=== PATIENT | female | born 1975 | race Caucasian/White ===

== ENCOUNTER 2016-09-24 04:17 | Emergency (ER) | payer SELFPAY ==
[2016-09-24 05:10] LABS: Basophils % (Auto) 0.6 % (0.0-1.8); Eosinophils % (Auto) 0.6 % (0.0-4.3); Hematocrit 34.9 % (30.3-42.9); Hemoglobin 11.6 gm/dl (10.1-14.3); Mean Corpuscular HGB Conc 33 % (30-34); Mean Corpuscular Hemoglobin 29 pg (28-32); Mean Corpuscular Volume 86 fl (79-97); Platelet Count 270 K/mm3 (140-440); Red Blood Count 4.05 M/mm3 (3.65-5.03); White Blood Count 11.3 K/mm3 (4.5-11.0)
[2016-09-24 05:52] LABS: Bilirubin,Urine NEG (Negative); Blood,Urine LG (Negative); Ketones,Urine TR mg/dL (Negative); Leukocyte Esterase,Urine NEG (Negative); Nitrite,Urine NEG (Negative); Protein,Urine <15 mg/dL mg/dL (Negative); Urobilinogen,Urine < 2.0 mg/dL (<2.0); WBC,Urine < 1.0 /HPF (0.0-6.0)
--- NOTE | 2016-09-24 06:34 | Emergency Department Report ---
ED HPI - General Chief complaint: Vaginal Bleeding Stated complaint: 10WKS W/BLEEDING AND CRAMPING Time Seen by Provider: 09/24/16 06:30 Source: patient Mode of arrival: Ambulatory Limitations: No Limitations - History of Present Illness Initial comments: She complains of some minor vaginal bleeding and lower abdominal discomfort. She believes that she is an weeks . She has been having intermittent bleeding for the past 15 days but no ultrasound. She came from [place] and is headed to [place] at the end of this week. She has no OB doctor as of yet. The patient has had no recent fever or chills. MD Complaint: vaginal bleeding -: week(s) Location: pelvis Radiation: none Quality: cramping Consistency: intermittent Improves with: none Worsens with: none Associated symptoms: denies other symptoms - Related Data Previous Rx's Medication Instructions Recorded Last Taken Type HYDROcodone/APAP 5-325 [[place] 1 each PO Q6HR PRN #14 tablet 09/24/16 Unknown Rx 5/325] Allergies Allergy/AdvReac Type Severity Reaction Status Date / Time No Known Allergies Allergy Unverified 09/24/16 04:24 ED Review of Systems ROS: Stated complaint: 10WKS W/BLEEDING AND CRAMPING Other details as noted in HPI Constitutional: denies: chills, fever Eyes: denies: eye pain, eye discharge, vision change ENT: denies: ear pain, throat pain Respiratory: denies: cough, shortness of breath, wheezing Cardiovascular: denies: chest pain, palpitations Endocrine: no symptoms reported Gastrointestinal: abdominal pain. denies: nausea, diarrhea Genitourinary: as per HPI. denies: urgency, dysuria, discharge Musculoskeletal: denies: back pain, joint swelling, arthralgia Skin: denies: rash, lesions Neurological: denies: headache, weakness, paresthesias Psychiatric: denies: anxiety, depression Hematological/Lymphatic: denies: easy bleeding, easy bruising ED Past Medical Hx - Past Medical History Previous Medical History?: No - Surgical History Past Surgical History?: Yes Additional Surgical History: c-sec - Social History Smoking Status: Never Smoker - Medications Home Medications: Home Medications Medication Instructions Recorded Confirmed Last Taken Type HYDROcodone/APAP 5-325 [[place] 1 each PO Q6HR PRN #14 tablet 09/24/16 Unknown Rx 5/325] ED Physical Exam - General Limitations: No Limitations General appearance: alert, in no apparent distress - Head Head exam: Present: atraumatic, normocephalic - Eye Eye exam: Present: normal appearance. Absent: scleral icterus - ENT ENT exam: Present: mucous membranes moist - Neck Neck exam: Present: normal inspection - Respiratory Respiratory exam: Present: normal lung sounds bilaterally. Absent: respiratory distress - Cardiovascular Cardiovascular Exam: Present: regular rate, normal rhythm. Absent: systolic murmur, diastolic murmur, rubs, gallop - GI/Abdominal GI/Abdominal exam: Present: soft, normal bowel sounds. Absent: distended, tenderness, guarding, rebound, rigid - Extremities Exam Extremities exam: Present: normal inspection - Back Exam Back exam: Present: normal inspection - Neurological Exam Neurological exam: Present: alert, oriented X3, CN II-XII intact. Absent: motor sensory deficit - Psychiatric Psychiatric exam: Present: normal affect, normal mood - Skin Skin exam: Present: warm, dry, intact, normal color. Absent: rash ED Course Vital Signs 09/24/16 09/24/16 04:24 07:54 Temperature 98.0 F Pulse Rate 88 85 Respiratory 18 18 Rate Blood Pressure 153/103 Blood Pressure 147/96 [Left] O2 Sat by Pulse 100 100 Oximetry - Reevaluation(s) Reevaluation #1: Significant vaginal bleeding. Patient is appropriate for outpatient referral and follow-up. 09/24/16 08:12 ED Medical Decision Making - Lab Data Result diagrams: 09/24/16 04:40 Laboratory Results - last 24 hr 09/24/16 09/24/16 09/24/16 04:40 04:40 04:40 WBC 11.3 H RBC 4.05 Hgb 11.6 Hct 34.9 MCV 86 MCH 29 MCHC 33 RDW 14.0 Plt Count 270 Lymph % (Auto) 29.1 [place] % (Auto) 5.4 Eos % (Auto) 0.6 Baso % (Auto) 0.6 Lymph # 3.3 [place] # 0.6 Eos # 0.1 Baso # 0.1 Seg Neutrophils % 64.3 Seg Neutrophils # 7.2 HCG, Quant 7223 H Urine Color Urine Turbidity Urine pH Ur Specific [place] Urine Protein Urine Glucose (UA) Urine Ketones Urine Blood Urine Nitrite Urine Bilirubin Urine Urobilinogen Ur Leukocyte Esterase Urine WBC (Auto) Urine RBC (Auto) U Epithel Cells (Auto) Blood Type O POSITIVE Antibody Screen TNR HECTOR Antibody Screen Negative 09/24/16 05:19 WBC RBC Hgb Hct MCV MCH MCHC RDW Plt Count Lymph % (Auto) [place] % (Auto) Eos % (Auto) Baso % (Auto) Lymph # [place] # Eos # Baso # Seg Neutrophils % Seg Neutrophils # HCG, Quant Urine Color Straw Urine Turbidity Clear Urine pH 6.0 Ur Specific [place] 1.002 L Urine Protein <15 mg/dl Urine Glucose (UA) Neg Urine Ketones Tr Urine Blood Lg Urine Nitrite Neg Urine Bilirubin Neg Urine Urobilinogen < 2.0 Ur Leukocyte Esterase Neg Urine WBC (Auto) < 1.0 Urine RBC (Auto) 2.0 U Epithel Cells (Auto) < 1.0 Blood Type Antibody Screen HECTOR Antibody Screen - Radiology Data Radiology results: report reviewed interpreted by me: Demise at 6 weeks. Critical care attestation.: If time is entered above; I have spent that time in minutes in the direct care of this critically ill patient, excluding procedure time. ED Disposition Clinical Impression: Inevitable Disposition: DISCHARGED TO HOME OR SELFCARE Is pt being admited?: No Does the pt Need Aspirin: No Condition: Stable Instructions: Intrauterine Demise (ED) Additional Instructions: Return any significant bleeding as needed. Follow-up with OB doctor. See referral. Rx as needed for pain. Prescriptions: HYDROcodone/APAP 5-325 [[place] 5/325] 1 each PO Q6HR PRN #14 tablet PRN Reason: Pain Referrals: DIMITRIOS LUNA MD [Primary Care Provider] - 3-5 Days LUIS EDUARDO CAPUTO MD [Staff Physician] - 2-3 Days Time of Disposition: 08:12
--- NOTE | 2016-09-24 07:35 | Ultrasound Report ---
ULTRASOUND OB LESS THAN 14 WEEKS ULTRASOUND OB TRANSVAGINAL HISTORY: Vaginal bleeding during . FINDINGS: Transabdominal and transvaginal ultrasound imaging was performed. There are no comparisons. The uterus measures 11 x 6 x 6 cm. No uterine mass is appreciated. An intrauterine gestational sac containing a small pole is identified. No heart rate could be demonstrated. [place]-rump length measures 4.1 mm which correlates with a 6 week, 1 day . Both ovaries are visualized and demonstrate no abnormality. No pelvic fluid collection. IMPRESSION: demise.
[2016-09-24 07:55] VITALS: BP 147/96
== END 2016-09-24 08:23 | disposition home or self-care (01) ==
LOC: ED 04:17
DX: O03.9 Complete or unspecified spontaneous abortion without complication (principal); Z3A.10 10 weeks gestation of pregnancy
CPT/HCPCS: 36415; 76801; 76817; 81001; 84702; 85025; 86850; 86900; 86901

== ENCOUNTER 2016-09-25 05:48 | Emergency (ER) | payer SELFPAY ==
[2016-09-25] MEDS ORDERED: NORCO 5/325 ONE ×2 (05:55→11:30)
[2016-09-25] MEDS ORDERED: NORCO 5/325 PO ONE ×2 (06:09→11:34)
[2016-09-25 07:15] LABS: Basophils % (Auto) 0.5 % (0.0-1.8); Eosinophils % (Auto) 0.6 % (0.0-4.3); Hematocrit 33.7 % (30.3-42.9); Hemoglobin 11.1 gm/dl (10.1-14.3); Mean Corpuscular HGB Conc 33 % (30-34); Mean Corpuscular Hemoglobin 29 pg (28-32); Mean Corpuscular Volume 87 fl (79-97); Platelet Count 276 K/mm3 (140-440); Red Blood Count 3.88 M/mm3 (3.65-5.03); Red Cell Distribution Width 14.3 % (13.2-15.2)
[2016-09-25 07:33] LABS: Alanine Aminotransferase 13 units/L (7-56); Albumin 3.7 g/dL (3.9-5); Albumin/Globulin Ratio 1.2 %; Alkaline Phosphatase 83 units/L (35-129); Anion Gap 21 mmol/L; BUN/Creatinine Ratio 16.66; Bilirubin,Total 0.3 mg/dL (0.1-1.2); Blood Urea Nitrogen 10 mg/dL (7-17); Calcium 8.5 mg/dL (8.4-10.2); Carbon Dioxide 19 mmol/L (22-30); Chloride 99.2 mmol/L (98-107); Glucose 173 mg/dL (65-100); Lipase 22 units/L (13-60); Potassium 3.6 mmol/L (3.6-5.0); Sodium 136 mmol/L (137-145); Total Protein 6.8 g/dL (6.3-8.2)
[2016-09-25 11:32] VITALS: BP 107/73
--- NOTE | 2016-09-25 12:15 | Emergency Department Report ---
ED General Adult HPI - General Chief complaint: Abdominal Pain Stated complaint: POSS MISCARRIAGE Time Seen by Provider: 09/25/16 10:40 Source: patient Mode of arrival: Ambulatory Limitations: No Limitations - History of Present Illness Initial comments: The patient complains of lower abdominal cramping after passing what she thinks was her fetus. She was found to be approximately 6 weeks of gestational age when I saw her yesterday with a crown-rump length of 4.1 and negative cardiac activity. She was referred to OB and given a prescription for pain medication. She's had some subsequent bleeding but not a significant amount. -: Sudden Location: abdomen Radiation: non-radiation Severity scale (0 -10): 7 Quality: other (cramping) Consistency: intermittent Improves with: none Worsens with: none Associated Symptoms: other (vaginal bleeding) Treatments Prior to Arrival: none - Related Data Home Medications Medication Instructions Recorded Confirmed Last Taken Acetaminophen [Acetaminophen TAB] 1 tab PO PRN PRN 09/25/16 09/25/16 09/25/16 1 Previous Rx's Medication Instructions Recorded Last Taken Type HYDROcodone/APAP 5-325 [[place] 1 each PO Q6HR PRN #14 tablet 09/24/16 09/25/16 Rx 5/325] Allergies Allergy/AdvReac Type Severity Reaction Status Date / Time No Known Allergies Allergy Unverified 09/24/16 04:24 ED Review of Systems ROS: Stated complaint: POSS MISCARRIAGE Other details as noted in HPI Constitutional: denies: chills, fever Eyes: denies: eye pain, eye discharge, vision change ENT: denies: ear pain, throat pain Respiratory: denies: cough, shortness of breath, wheezing Cardiovascular: denies: chest pain, palpitations Endocrine: no symptoms reported Gastrointestinal: abdominal pain. denies: nausea, diarrhea Genitourinary: as per HPI. denies: urgency, dysuria, discharge Musculoskeletal: denies: back pain, joint swelling, arthralgia Skin: denies: rash, lesions Neurological: denies: headache, weakness, paresthesias Psychiatric: denies: anxiety, depression Hematological/Lymphatic: denies: easy bleeding, easy bruising ED Past Medical Hx - Past Medical History Previous Medical History?: No - Surgical History Past Surgical History?: Yes Additional Surgical History: c-sec - Social History Smoking Status: Never Smoker Substance Use Type: None - Medications Home Medications: Home Medications Medication Instructions Recorded Confirmed Last Taken Type HYDROcodone/APAP 5-325 [[place] 1 each PO Q6HR PRN #14 tablet 09/24/16 09/25/16 Rx 5/325] Acetaminophen [Acetaminophen TAB] 1 tab PO PRN PRN 09/25/16 09/25/16 09/25/16 History 1 ED Physical Exam - General Limitations: No Limitations General appearance: alert, in no apparent distress - Head Head exam: Present: atraumatic, normocephalic - Eye Eye exam: Present: normal appearance. Absent: scleral icterus - ENT ENT exam: Present: mucous membranes moist - Neck Neck exam: Present: normal inspection - Respiratory Respiratory exam: Present: normal lung sounds bilaterally. Absent: respiratory distress - Cardiovascular Cardiovascular Exam: Present: regular rate, normal rhythm. Absent: systolic murmur, diastolic murmur, rubs, gallop - GI/Abdominal GI/Abdominal exam: Present: soft, normal bowel sounds. Absent: distended, tenderness, guarding, rebound, rigid - Extremities Exam Extremities exam: Present: normal inspection - Back Exam Back exam: Present: normal inspection - Neurological Exam Neurological exam: Present: alert, oriented X3, CN II-XII intact. Absent: motor sensory deficit - Psychiatric Psychiatric exam: Present: normal affect, normal mood - Skin Skin exam: Present: warm, dry, intact, normal color. Absent: rash ED Course Vital Signs 09/25/16 09/25/16 09/25/16 06:07 10:15 11:32 Temperature 98.3 F Pulse Rate 71 68 62 Respiratory 20 18 19 Rate Blood Pressure 149/101 149/87 107/73 [Right] O2 Sat by Pulse 100 99 100 Oximetry ED Medical Decision Making - Lab Data Result diagrams: 09/25/16 06:56 09/25/16 06:56 Laboratory Results - last 24 hr 09/25/16 09/25/16 06:56 06:56 WBC 12.0 H RBC 3.88 Hgb 11.1 Hct 33.7 MCV 87 MCH 29 MCHC 33 RDW 14.3 Plt Count 276 Lymph % (Auto) 21.6 [place] % (Auto) 5.0 Eos % (Auto) 0.6 Baso % (Auto) 0.5 Lymph # 2.6 [place] # 0.6 Eos # 0.1 Baso # 0.1 Seg Neutrophils % 72.3 H Seg Neutrophils # 8.6 H Sodium 136 L Potassium 3.6 Chloride 99.2 Carbon Dioxide 19 L Anion Gap 21 BUN 10 Creatinine 0.6 L Estimated GFR > 60 BUN/Creatinine Ratio 16.66 Glucose 173 H Calcium 8.5 Total Bilirubin 0.3 AST 13 ALT 13 Alkaline Phosphatase 83 Total Protein 6.8 Albumin 3.7 L Albumin/Globulin Ratio 1.2 Lipase 22 - Radiology Data Radiology results: report reviewed (consistent with completed AB) Critical care attestation.: If time is entered above; I have spent that time in minutes in the direct care of this critically ill patient, excluding procedure time. ED Disposition Clinical Impression: Complete Disposition: DISCHARGED TO HOME OR SELFCARE Is pt being admited?: No Does the pt Need Aspirin: No Condition: Stable Instructions: Spontaneous Miscarriage (ED) Additional Instructions: Follow-up with OB physician as referred yesterday. Return any acute change or problem. Rx for pain as given yesterday. Return any further problem. Referrals: PRIMARY CARE, [Primary Care Provider] - 3-5 Days Time of Disposition: 14:03
--- NOTE | 2016-09-25 13:50 | Ultrasound Report ---
OB ultrasound: Pain. Endovaginal and transabdominal imaging demonstrates an anteverted uterus measuring 5.8 x 7.6 x 9.4 cm. The myometrium is homogeneous. The endometrium is thickened measuring approximately 22 mm. It is generally inhomogeneous with scattered areas of focal lucencies. On color imaging there is no increased vascularity. No evidence of gestational sac currently identified. The left ovary is not well visualized but appears to measure approximately 2 cm. The right ovary is somewhat better defined measuring 2.7 cm. No free fluid identified. Prior ultrasound one day ago demonstrated gestational sac. Impressions: Expelled sac with POC.
== END 2016-09-25 15:08 | disposition home or self-care (01) ==
LOC: ED 05:48
DX: O03.9 Complete or unspecified spontaneous abortion without complication (principal)
CPT/HCPCS: 36415; 76801; 76817; 80053; 83690; 85025